=== PATIENT | female | born 1965 | race Caucasian/White ===

== ENCOUNTER → 2018-02-07 | Outpatient (CLI) | payer OTHER ==
[2016-09-04 08:42] VITALS: BP 146/73
[~2018-02-07] MED LIST: BUPIVACAINE MPF 0.5% 30 ML VIAL. ONE; HYDR-971 PO; IBUP200T44 PO; LIDOCAINE 1% PF 30 ML VIAL. ONE; POLY10DR EACHEYE; diazepam; effexor; mobic; topamax
== END | disposition home or self-care (01) ==
LOC: SURG 15:20
PROVIDERS: ATTEND Anesthesiology Pain Medicine
DX: M47.812 Spondylosis without myelopathy or radiculopathy, cervical region (principal); G47.30 Sleep apnea, unspecified; M19.90 Unspecified osteoarthritis, unspecified site; Z98.51 Tubal ligation status; Z90.49 Acquired absence of other specified parts of digestive tract; Z98.890 Other specified postprocedural states; Z85.820 Personal history of malignant melanoma of skin
CPT/HCPCS: 64490; 64491; J2001; J3490